=== PATIENT | male | born 1935 | race Caucasian/White ===

== ENCOUNTER 2021-02-06 10:52 | Emergency (ER) | payer MEDICARE ==
[~2021-02-06] VITALS: Ht 188 cm; Wt 96.2 kg
[2021-02-06] MEDS ORDERED: CEPHALEXIN500 M1 PO (12:29)
== END 2021-02-06 12:35 | disposition home or self-care (01) ==
LOC: ED 10:52
DX: S81.802A Unspecified open wound, left lower leg, initial encounter (principal); L08.9 Local infection of the skin and subcutaneous tissue, unspecified; W22.8XXA Striking against or struck by other objects, initial encounter; Z87.891 Personal history of nicotine dependence
CPT/HCPCS: 99283